=== PATIENT | male | born 1955 | race Caucasian/White ===

== ENCOUNTER 2016-10-17 13:03 | Day surgery (SDC) | payer OTHER ==
[2016-10-17 14:53] LABS: HEMOGLOBIN 11.8 g/dL (14.1-18.0)
--- NOTE | 2016-10-17 15:05 | Operative Note ---
Upper GI Endoscopy Procedure date: 10/17/16 Date of : 59 Procedure:Upper GI Endoscopy Esophagogastroduodenoscopy with submucosal epinephrine injection, APC ablation, Endo Clip placement and cold biopsies Indications: Mr. Olivares is a 61-year-old gentleman he states that he developed black stools/ melena that began yesterday morning. He does naproxen 500 mg daily and has been on this for a couple of years. He has had some upset stomach and belching with nausea. He did have a colonoscopy by me on October 04, 2016 and had 2 small polyps (tubular adenoma 1/mucosal prolapse polyp 1) removed. The patient reports no abdominal pain or weight loss. He has had no prior gastrointestinal bleed. He has had increased fatigue and malaise. His hemoglobin and hematocrit were 11.8 and 34.9. He reports no orthostasis. Performing Provider: Pao Garcia MD Referring Provider: Taj Jacobs M.D. Sedation: MAC sedation Procedure: Prior to the procedure, a history and physical exam was performed, and patients medications and allergies were reviewed. The risks and benefits of the procedure and the sedation options and risks were discussed with the patient. All questions were answered and informed consent was obtained. The patient was brought to the procedure room. Patient identification and proposed procedure were verified by the physician and the nurse. The patient was placed in a left lateral decubitus position and the scope was passed under direct vision. Throughout the procedure, the patient's blood pressure, pulse, and oxygen saturations were monitored continuously. The endoscope was introduced through the mouth, and advanced to the second part of duodenum. The upper GI endoscopy was accomplished without difficulty. The patient tolerated the procedure well. Findings: The scope was passed directly into the upper esophagus and advanced to the third portion of the duodenum. The post bulbar duodenum and duodenal bulb were normal with normal mucosa and conniventes. The scope was withdrawn through a normal duodenal bulb and pylorus into the stomach. 13-14 mm prepyloric gastric ulcer with adherent maroon clot and a flat pigmented spot suggestive of underlying blood vessel within the ulcer. The clot was removed and there was pigmentation. This was injected with 1-10,000 epinephrine and approximate 5 mL were injected in 4 quadrants around the pigmented spot in and side of the ulcer base. Next, the APC ablation catheter was utilized to cauterize the flat pigmented spot. Lastly, an Endo Clip was placed over this to provide additional hemostasis. Cold biopsies were taken from the lesser curvature for H. pylori. There was some gastric atrophy of the body and fundus of the stomach. There was also some bile reflux. Upon retroflexion there was no hiatal hernia. The endoscope was then withdrawn into the esophagus. There was no evidence of reflux esophagitis, Hughes's or esophageal varices. The remainder of the esophageal mucosa was normal. Immediate complications: None EBL (ml): 0 Impression: 1. Prepyloric gastric ulcer with clot/pigmented spot indicative of underlying vessel status post epinephrine injection, APC ablation and Endo Clip placement ( control of bleeding with hemostasis) 2. Chronic atrophic gastritis Recommendations: I will follow up the biopsies. I am going to place the patient on PPI therapy ( omeprazole twice a day) and misoprostol 200 g by mouth twice a day. I would hold naproxen. I will check iron studies and consider parenteral iron replacement. at [id number]
[2016-10-17 15:17] LABS: ABO BLOOD TYPE O; RH BLOOD TYPE POSITIVE
[2016-10-17 16:19] VITALS: BP 122/75
[2016-10-18 08:39] LABS: Iron 91 ug/dL (38-169); Iron Saturation 31 % (15-55); UIBC 207 ug/dL (111-343)
== END 2016-10-17 16:15 | disposition home or self-care (01) ==
LOC: SDC 13:03
PROVIDERS: Internal Medicine Gastroenterology
PROC: 0DB78ZX Excision of Stomach, Pylorus, Via Natural or Artificial Opening Endoscopic, Diagnostic (ICD-10-PCS; 2016-10-17)
PROC: 0W3P8ZZ Control Bleeding in Gastrointestinal Tract, Via Natural or Artificial Opening Endoscopic (ICD-10-PCS; 2016-10-17)
PROC: 3E0G8GC Introduction of Other Therapeutic Substance into Upper GI, Via Natural or Artificial Opening Endoscopic (ICD-10-PCS; principal; 2016-10-17 14:30)
DX: K92.1 Melena (principal); K25.9 Gastric ulcer, unspecified as acute or chronic, without hemorrhage or perforation; K29.60 Other gastritis without bleeding; Z79.1 Long term (current) use of non-steroidal anti-inflammatories (NSAID)
CPT/HCPCS: C2618